=== PATIENT | female | born 1995 | race Caucasian/White ===

== ENCOUNTER 2021-12-19 17:51 | Emergency (ER) | payer OTHER ==
[~2021-12-19] VITALS: Ht 157.5 cm; Wt 54.4 kg
[2021-12-19 17:51] VITALS: BP_SYST 114
--- NOTE | 2021-12-19 17:51 | NUR ---
BROUGHT BACK TO BED #6 AND TRIAGED. REPORT GIVEN TO KAHLIL
--- NOTE | 2021-12-19 17:55 | NUR ---
RECEIVED PT FROM HAO MOTLEY. ASSUMED CARE. PT HAS DOG BITE TO R KNEE. PT STATED PAIN IS MILD AND TOLERABLE AT THIS TIME. FAMILY MEMBER AT BEDSIDE. PT AAOX4, RESP E/U. ON R/A.
[2021-12-19] MEDS ORDERED: DIPH-TET-PERTUS Vaccine 0.5 ML VIAL (ADACEL) I.M. ONE (18:30)
[2021-12-19] MEDS ORDERED: KETOROLAC TROMETHAMINE 30 MG VIAL IM ONE (18:45)
--- NOTE | 2021-12-19 18:46 | NUR ---
L KNEE XRAY TAKEN, TDAP GIVEN TO L DELTOID. SITE COVERED WITH BANDAID. WOUND CLEANSED AND DRESSING APPLIED. PT DENIES PAIN.
[2021-12-19] MEDS ORDERED: BACITRACIN 1 GM OINT TP ONE (18:47)
[2021-12-19] MEDS ORDERED: AUG875 PO (19:01)
[2021-12-19 19:17] VITALS: BP_SYST 122
--- NOTE | 2021-12-19 19:17 | NUR ---
Patient given written and verbal discharge instructions and verbalizes understanding. ER MD discussed with patient the results and treatment provided. Patient in stable condition. ID arm band removed. Rx of amox/clavulante given. Patient educated on pain management and to follow up with PMD. Pain Scale . Opportunity for questions provided and answered. Medication side effect fact sheet provided.
== END 2021-12-19 19:16 | disposition home or self-care (01) ==
LOC: SED 17:51
DX: S81.012A Laceration without foreign body, left knee, initial encounter (principal); W54.0XXA Bitten by dog, initial encounter; Y93.89 Activity, other specified; Y92.89 Other specified places as the place of occurrence of the external cause; Y99.8 Other external cause status
CPT/HCPCS: 73564; 90715; 99283